=== PATIENT | female | born 1975 | race Caucasian/White ===

== ENCOUNTER 2018-07-11 07:03 | Outpatient (CLI) | payer BC ==
[2018-07-11 07:52] LABS: #Basophils 0.1 thou/uL (0.0-0.2); #Eosinphils 0.2 thou/uL (0.0-0.7); #Lymphocytes 1.9 thou/uL (1.20-3.40); #Monocytes 0.4 thou/uL (0.11-0.59); %Basophils 2.5 % (0.0-1.0); %Eosinophils 4.5 % (0.0-10.0); Hemoglobin 13.1 g/dL (12.0-16.0); Mean Corpuscular HGB CONC 34.1 g/dL (32.0-36.0); Mean Corpuscular Hemoglobin 30.1 pg (27.0-31.0); Mean Corpuscular Volume 88.2 fL (78.0-98.0); Mean Platelet Volume 6.5 fL (7.4-10.4); Platelet Count 252 thou/uL (130-400); RBC Distribution Width 12.2 % (11.5-14.5); Red Blood Cell (RBC) Count 4.36 mill/uL (4.20-5.40); White Blood Cell (WBC) Count 4.6 thou/uL (4.8-10.8)
[2018-07-11 07:55] LABS: ALT (SGPT) 20 U/L (8-55); AST (SGOT) 19 U/L (5-34); Albumin 4.4 g/dL (3.5-5.0); Alkaline Phosphatase 82 U/L (40-150); Anion Gap 13 mmol/L (10-20); BUN (Urea Nitrogen) 13 mg/dL (7.0-18.7); Bilirubin, Total 0.4 mg/dL (0.2-1.2); Calc. Creatinine Clearance 0 mL/min (70-130); Calcium 9.6 mg/dL (7.8-10.44); Carbon Dioxide 27 mmol/L (22-29); Cardiac Risk 3.7 (Less than 4.5); Chloride 108 mmol/L (98-107); Cholesterol 192 mg/dl (< 200 Desired); Estimated GFR-MDRD 89; Globulin 2.8 g/dL (2.4-3.5); Glucose 94 mg/dL (70-105); HDL Cholesterol 52 mg/dL (>60 Neg Risk); LDL Cholesterol, Calculated 124 mg/dL; Protein, Total 7.2 g/dL (6.0-8.3); Sodium 144 mmol/L (136-145); Triglycerides 78 mg/dL (Less than 150)
--- NOTE | 2018-07-11 09:52 | CT ---
CT Stone Protocol HISTORY: Right flank pain x2 months. History of kidney stones. Previous gastric sleeve procedure. COMPARISON: 07/13/2003 study FINDINGS: The lung bases are clear. The liver and spleen show no focal abnormalities on this noncontrast exam. The liver measures 18 cm i n length. The spleen is within normal limits. Pancreas region appears unremarkable. The gallbladder has been removed. Right and left adrenal glands are normal in appearance. Right and left kidneys are normal in size wit h out evidence of renal calculi. There is mild prominence to the right and to a lesser extent the left collecting system however the ureters are normal in caliber and no ureteral calculus is seen. Th is prominence was seen on a previous 2004 study. There is no significant periaortic or mesenteric adenopathy. Postoperative changes of the stomach are noted. CT of pelvis performed without contrast enhancement: The appendix appears unremarkable. Minimal sigmo id diverticulosis is seen. No evidence of adenopathy or mass. IMPRESSION: 1. No evidence of renal or ureteral calculi. Slight prominence of both collecting systems particularl y the right renal pelvis is noted, this is slightly more prominent than on the 2004 study but still fairly similar in appearance and probably represents baseline change in this patient. No cortical atr ophy. 2. Sigmoid diverticulosis. 3. Postcholecystectomy and gastric sleeve.
[2018-07-11 11:02] LABS: Hemoglobin A1c 4.8 % (4.0-6.0)
== END 2018-07-11 07:04 | disposition home or self-care (01) ==
LOC: SCSCT 07:03
PROVIDERS: ATTEND Family Medicine
DX: Z00.00 Encounter for general adult medical examination without abnormal findings (principal); N20.0 Calculus of kidney; K57.30 Diverticulosis of large intestine without perforation or abscess without bleeding; Z90.49 Acquired absence of other specified parts of digestive tract
CPT/HCPCS: 36415; 74176; 80053; 80061; 82306; 83036; 84443; 85025

== ENCOUNTER 2018-12-14 06:45 | Emergency (ER) | payer BC ==
[2018-12-14] MEDS ORDERED: Ondansetron PF 4 MG/2 ML Vial ONE (07:26)
[2018-12-14] MEDS ORDERED: Ketorolac Tromethamine 30 MG/ML VIAL ONE (07:27)
[2018-12-14 07:34] LABS: Bilirubin Negative (Negative); Blood, Urine Moderate (Negative); Clarity Cloudy (Clear); Glucose, Urine (Dipstick) Negative (Negative); Leukocyte Small (Negative); Nitrite Negative (Negative); Protein, Urine (Dipstick) 30 mg/dL (Neg-Trace); Urobilinogen 0.2 mg/dL (Less than 2)
[2018-12-14 07:35] LABS: Bacteria/HPF 1+ HPF (None Seen); Squamous Epithelial 0-3 HPF (0-3)
--- NOTE | 2018-12-14 08:11 | CT ---
CT ABDOMEN AND PELVIS WITHOUT CONTRAST: HISTORY: Left-sided flank pain. FINDINGS: Comparison is made with the exam of 07/11/2018. Absence of oral and IV contrast reduces the sensitivit y of the exam particularly for evaluation of solid organs involved. The lung bases are clear. The patient is post cholecystitis and vertical sleeve gastrectomy and jarett kimi bypass surgery. No calculi are seen in the kidneys, ureters, or the urinary bladder. Prominence of the collecting sy stems bilaterally, right greater than left, is again noted. There is colonic diverticulosis. There are pericolonic inflammatory changes along the long segment o f the descending colon. A normal-appearing appendix is present. IMPRESSION: 1. Left-sided diverticulitis. 2. No evidence of urinary tract calculi. Stable prominence of the bilateral collecting systems, rig ht greater than left. POS: OFF
[2018-12-14 08:13] LABS: Eosinophils 2 % (0-10); Hemoglobin 14.7 g/dL (12.0-16.0); Lymphocytes 24 % (21-51); MDiff Complete? YES; Mean Corpuscular HGB CONC 35.2 g/dL (32.0-36.0); Mean Corpuscular Hemoglobin 30.8 pg (27.0-31.0); Mean Corpuscular Volume 87.5 fL (78.0-98.0); Mean Platelet Volume 6.6 fL (7.4-10.4); Monocytes 9 % (0-10); Neutrophil 65 % (42-75); Platelet Count 225 thou/uL (130-400); RBC Distribution Width 11.6 % (11.5-14.5); Red Blood Cell (RBC) Count 4.78 mill/uL (4.20-5.40); White Blood Cell (WBC) Count 8.1 thou/uL (4.8-10.8)
[2018-12-14 08:19] LABS: ALT (SGPT) 23 U/L (8-55); AST (SGOT) 25 U/L (5-34); Albumin 4.6 g/dL (3.5-5.0); Alkaline Phosphatase 101 U/L (40-110); Anion Gap 16 mmol/L (10-20); BUN (Urea Nitrogen) 12 mg/dL (7.0-18.7); Bilirubin, Total 0.6 mg/dL (0.2-1.2); Calc. Creatinine Clearance 0 mL/min (70-130); Calcium 9.5 mg/dL (7.8-10.44); Carbon Dioxide 26 mmol/L (22-29); Chloride 105 mmol/L (98-107); Estimated GFR-MDRD 86; Globulin 3.1 g/dL (2.4-3.5); Glucose 100 mg/dL (70-105); Lipase 26 U/L (8-78); Potassium 4.1 mmol/L (3.5-5.1); Protein, Total 7.7 g/dL (6.0-8.3); Sodium 143 mmol/L (136-145)
== END 2018-12-14 09:13 | disposition home or self-care (01) ==
LOC: SCSER 06:45
DX: K57.32 Diverticulitis of large intestine without perforation or abscess without bleeding (principal)
CPT/HCPCS: 74176; 80053; 81003; 81015; 83690; 85025; 96361; 96374; 96375; J1885; J2405

== ENCOUNTER 2019-08-16 10:03 | Outpatient (CLI) | payer BC ==
--- NOTE | 2019-08-20 16:05 | MMO ---
Bilateral MAMMO Bilat Screen [id number]. CLINICAL HISTORY: Patient is 44 years old and is seen for screening. The patient has no family history of breast cancer. The patient has no personal history of cancer. VIEWS: The views performed were: bilateral craniocaudal with tomosynthesis and bilateral mediolateral oblique with tomosynthesis. FILMS COMPARED: The present examination has been compared to a prior imaging study performed at This study has been interpreted with the assistance of computer-aided detection. MAMMOGRAM FINDINGS: There are scattered fibroglandular densities. There are stable benign appearing calcifications seen in both breasts. There are no suspicious masses, suspicious calcifications, or new areas of architectural distortion. IMPRESSION: THERE IS NO MAMMOGRAPHIC EVIDENCE OF MALIGNANCY. A ROUTINE FOLLOW-UP MAMMOGRAM IN 1 YEAR IS RECOMMENDED. THE RESULTS OF THIS EXAM WERE SENT TO THE PATIENT. ACR BI-RADS Category 2 - Benign finding MAMMOGRAPHY NOTE: 1. A negative mammogram report should not delay a biopsy if a dominant of clinically suspicious mass is present. 2. Approximately 10% to 15% of breast cancers are not detected by mammography. 3. Adenosis and dense breasts may obscure an underlying neoplasm. Reported by: ROMERO ESTRELLA MD Electonically Signed: [id number]
== END 2019-08-16 10:04 | disposition home or self-care (01) ==
LOC: BICMAMMO 10:03
PROVIDERS: ATTEND Family Medicine
DX: Z12.31 Encounter for screening mammogram for malignant neoplasm of breast (principal)
CPT/HCPCS: 77063; 77067

== ENCOUNTER 2020-01-09 08:24 | Outpatient (CLI) | payer BC ==
--- NOTE | 2020-01-09 09:19 | MRI ---
MRI cervical spine noncontrast: 01/09/2020 HISTORY: 44-year-old female with ICD-10: "M 79.603, arm pain" Cervical radiculopathy. COMPARISON: None FINDINGS: Mild reversal of curvature. Vertebral body heights are maintained. No high-grade disc space narrowing at any level. No high-grade facet DJD. Cervical spinal cord is normal in size and signal. No major bone marrow signal abnormality. Generous caliber of spinal canal and neural foramina at all levels. N o focal disc herniation that impinges on nerve root or spinal cord. Shallow, broad-based disc protrusions or disc-osteophyte complexes indent the ventral aspect of thecal sac at all levels from C 3-4 to C6-7, without contacting the spinal cord. Additionally, at C5-6 there is a tiny right paracentral focal disc protrusion superimposed on a broad-based disc protrusion. IMPRESSION: 1.) Mild cervical spondylosis 2) reversal of curvature. 3) otherwise negative.
--- NOTE | 2020-01-09 11:34 | MRI ---
MRI LUMBAR SPINE WITHOUT CONTRAST: Date: 01/09/2020 INDICATION: Back pain. Arm pain. FINDINGS: The lumbar vertebra maintain normal height and alignment and exhibit normal signal. The disc spaces a re preserved and maintain normal hydration with normal high T2 signal. There is no evidence of disc bulge or disc protrusion at any of the lumbar levels. There is no eviden ce of central canal or foraminal stenosis at any of the lumbar levels. Incidentally noted is mild fullness of the right renal pelvis. IMPRESSION: 1. Unremarkable MRI of lumbar spine. 2. Mild fullness of the right renal pelvis, which is nonspecific. Correlate clinically. POS: [facility]
== END 2020-01-09 08:25 | disposition home or self-care (01) ==
LOC: TBSIIMAG 08:24
PROVIDERS: ATTEND Psychiatry & Neurology Neurology
DX: M79.603 Pain in arm, unspecified (principal); M79.606 Pain in leg, unspecified; M47.812 Spondylosis without myelopathy or radiculopathy, cervical region
CPT/HCPCS: 72141; 72148

== ENCOUNTER 2021-09-14 13:35 | Outpatient (CLI) | payer BC | END 2021-09-14 13:36 | disposition home or self-care (01) | LOC: BICCT 13:35 | PROVIDERS: ATTEND Family Medicine | DX: N20.0 Calculus of kidney (principal); N02.9 Recurrent and persistent hematuria with unspecified morphologic changes | CPT/HCPCS: 74176 ==

== ENCOUNTER 2022-07-05 08:20 | Outpatient (CLI) | payer BC | END 2022-07-05 08:21 | disposition home or self-care (01) | LOC: SCSRAD 08:20 | PROVIDERS: ATTEND Family Medicine | DX: N20.0 Calculus of kidney (principal) | CPT/HCPCS: 74018 ==

== ENCOUNTER 2024-04-03 08:46 | Outpatient (CLI) | payer BC | END 2024-04-03 08:47 | disposition home or self-care (01) | LOC: BICMAMMO 08:46 | PROVIDERS: ATTEND Family Medicine | DX: Z12.31 Encounter for screening mammogram for malignant neoplasm of breast (principal) | CPT/HCPCS: 77063; 77067 ==